=== PATIENT | female | born 2000 | race Caucasian/White ===

== ENCOUNTER 2020-12-05 01:50 | Emergency (ER) | payer OTHER ==
[~2020-12-05] VITALS: Ht 167.6 cm; Wt 100.0 kg
[2020-12-05 02:01] VITALS: TEMP 98.5
[2020-12-05] MEDS ORDERED: DEPO-TESTOS200 MG/M1 IM (02:32)
[2020-12-05 03:08] LABS: HEMATOCRIT 37.3 % (37.0-47.0); HEMOGLOBIN 12.9 g/dl (12.5-16.0); MEAN CELL VOLUME 81 fl (80.0-100.0); MEAN CORPUSCULAR HEMOGLOBIN 28 pg (27.0-31.0); MEAN CORPUSCULAR HGB CONC 35 g/dl (33.0-37.0); MEAN PLATELET VOLUME 9.5 fl (7.4-10.4); PLATELET COUNT 266 K/mm3 (130-400); RED BLOOD COUNT 4.63 M/mm3 (4.10-5.30); REDCELL DISTRIBUTION WIDTH-CV 12.2 % (11.5-14.5)
[2020-12-05 03:23] VITALS: BP 123/80; PULSE 89
== END 2020-12-05 03:23 | disposition home or self-care (01) ==
LOC: COL.ER
PROVIDERS: Emergency Medicine
DX: N92.0 Excessive and frequent menstruation with regular cycle (principal); F17.200 Nicotine dependence, unspecified, uncomplicated